=== PATIENT | male | born 1960 ===

== ENCOUNTER 2019-08-29 08:45 | Outpatient (CLI) | payer BC ==
--- NOTE | 2019-08-29 11:43 | Diagnostic Imaging Report ---
Indication: Palpable left inferior buttock/perineal mass Technique: Grayscale and duplex images of the left inferior buttock/perineal palpable abnormality Comparison: none Findings: In the area of palpable abnormality, there is a somewhat difficult to visualize area of slightly hypoechoic mobile contents which measures 1.4 x 1.2 x 1.7 cm. This is not hypovascular Impression: 1.4 x 1.2 x 1.7 ill-defined area of hypoechoic mobile debris. This is suspicious for an abscess, although absence of hypervascularity is unusual. This may also represent a fistula tract. Further evaluation with contrast enhanced pelvic CT or MRI would be useful. Findings discussed by phone with Dr. Sosa at the time of interpretation
== END 2019-08-29 10:45 | disposition home or self-care (01) ==
LOC: ULS 08:45 → MERGE 08:45 → ULS 10:45
DX: R22.9 Localized swelling, mass and lump, unspecified (principal)